=== PATIENT | male | born 1980 | race African-American/Black ===

== ENCOUNTER 2022-08-20 23:05 | Emergency (ER) | payer OTHER ==
[~2022-08-20] VITALS: Ht 188 cm; Wt 117.9 kg
[2022-08-21] MEDS ORDERED: KETOROLAC TROMETHAMINE 15 MG/ML VIAL ONE (00:48)
[2022-08-21] MEDS ORDERED: VANCOMYCIN 1 GM VIAL ONE (00:49)
[2022-08-21] MEDS ORDERED: CEFEPIME 1 GM VIAL ONE (00:49)
[2022-08-21] MEDS ORDERED: CEFEPIME 1 GM in IV D5W 50 ML IV ONE (01:00)
[2022-08-21] MEDS ORDERED: VANCOMYCIN 1 GM in IV D5W 250 ML IV ONE (01:00)
[2022-08-21] MEDS ORDERED: KETOROLAC TROMETHAMINE INJ 30 MG/ML VIAL IV ONE (01:00)
[2022-08-21] MEDS ORDERED: IV NS 0.9% 1,000 ML BAG IV ONE (01:00)
--- NOTE | 2022-08-21 01:00 | NUR ---
XRAY AT BEDSIDE
[2022-08-21 01:21] LABS: BASOPHILS % (AUTO) 0.3 % (0.0-2.0); EOSINOPHILS % (AUTO) 5.1 % (0.0-6.0); HEMATOCRIT 37 % (39-51); HEMOGLOBIN 12.2 g/dL (13.5-17.5); LYMPHOCYTES # (AUTO) 1.8 K/uL (0.8-4.8); MEAN CORPUSCULAR HGB CONC 33 g/dl (31.0-36.0); MEAN CORPUSCULAR VOLUME 89 fL (80-96); MONOCYTES # (AUTO) 0.8 K/uL (0.1-1.30); MONOCYTES % (AUTO) 10.7 % (2.0-12.0); NEUTROPHILS # (AUTO) 4.3 K/uL (1.8-8.9); NEUTROPHILS % (AUTO) 58.9 % (43.0-81.0); PLATELET COUNT (AUTO) 282 K/uL (150-450); WHITE BLOOD COUNT (AUTO) 7.3 K/uL (4.3-11.0)
[2022-08-21 01:41] LABS: CALCIUM, SERUM 8.6 mg/dL (8.5-10.1); CREATININE 1.4 mg/dL (0.6-1.3); POTASSIUM 3.4 mmol/L (3.5-5.1)
[2022-08-21 01:45] LABS: C-REACTIVE PROTEIN 3.1 mg/dL (0.0-0.9)
[2022-08-21] MEDS ORDERED: AMOX-430 PO (02:16)
[2022-08-21] MEDS ORDERED: TRAM-351 PO (02:16)
[2022-08-21] MEDS ORDERED: KETO10TA2 PO (02:16)
--- NOTE | 2022-08-21 02:24 | NUR ---
Patient discharged to home in stable condition. Written and verbal after care instructions given. Patient verbalizes understanding of instruction.IV removed. Catheter intact and site benign. Pressure and 4x4 applied to site. No bleeding noted.
[2022-08-21 02:51] VITALS: BP 121/71
== END 2022-08-21 02:51 | disposition home or self-care (01) ==
LOC: ER 23:10
DX: S62.395A Other fracture of fourth metacarpal bone, left hand, initial encounter for closed fracture (principal); G89.18 Other acute postprocedural pain; Z79.899 Other long term (current) drug therapy; X58.XXXA Exposure to other specified factors, initial encounter; Y93.89 Activity, other specified; Y92.89 Other specified places as the place of occurrence of the external cause; Y99.8 Other external cause status
CPT/HCPCS: 99284; 96365; 96375; 96368; 73130; 85025; 80048; 87040 ×2; 83605; 85652; 36415; 85730; 86140; J3370; J7060; J7030; J0692 ×2; J1885; A4223 ×2